=== PATIENT | male | born 1970 | race Hispanic/Latino ===

== ENCOUNTER → 2020-06-06 | Outpatient (CLI) | payer OTHER | END | disposition home or self-care (01) | LOC: SHCH 07:40 | PROVIDERS: ATTEND Internal Medicine | DX: I70.213 Atherosclerosis of native arteries of extremities with intermittent claudication, bilateral legs (principal) | CPT/HCPCS: 93922 ==

== ENCOUNTER 2025-01-05 05:39 | Day surgery (SDC) | payer OTHER ==
[2025-01-01 11:34] LABS: IMMATURE GRANULOCYTE ABSOLUTE 0.04 K/uL (0-1); NUCLEATED RED BLOOD CELLS 0.0 % (0.0-0.19); PLATELET COUNT (AUTO) 190 K/uL (130-400); RED BLOOD CELL COUNT(AUTO) 5.11 MIL/uL (4.50-6.20); RED CELL DISTRIBUTION WIDTH 13.5 % (11.0-15.5); WHITE BLOOD COUNT (AUTO) 7.3 K/uL (4.8-10.8)
[2025-01-01 11:38] LABS: APPEARANCE,URINE CLEAR (CLEAR); GLUCOSE, URINE (UA) NEGATIVE (NEGATIVE); LEUKOCYTE ESTERASE ,URINE NEGATIVE Leu/uL (NEGATIVE); NITRATE,URINE NEGATIVE (NEGATIVE); OCCULT BLOOD,URINE MODERATE (NEGATIVE)
[2025-01-01 11:41] LABS: CREATININE 0.9 mg/dL (0.5-1.3); GLOMERULAR FILTR. RATE CALC 101.0 mL/min (>90); GLUCOSE,RANDOM 116.0 mg/dL (70-105); SODIUM SERUM 139.0 mmol/L (136-145); UREA NITROGEN, BLOOD 14.0 mg/dL (7-18)
[2025-01-01 11:45] LABS: ADD UA MICROSCOPIC YES
[2025-01-01 11:50] VITALS: BP 134/77; PULSE 85; RESP 18; TEMP 98.6
[2025-01-01 11:57] LABS: INR 1.06 (0.85-1.15)
--- NOTE | 2025-01-01 12:24 | EKG ---
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
--- NOTE | 2025-01-01 17:02 | HMCIMG ---
EXAM: CR CHEST, 1 VIEW CLINICAL HISTORY: pre op COMPARISON: None provided TECHNIQUE: Single frontal radiograph of the chest was obtained. FINDINGS: Lines/Devices: None. Lungs: Radiographically clear. No consolidation or ground-glass opacities are observed. There is no pleural effusion. There is no pneumothorax. Mediastinum and cardiovascular structures: There are calcific atherosclerotic plaques in the aorta. The cardiac silhouette is not enlarged. The central airway and mediastinal contours are unremarkable. Bones and soft tissues: Unremarkable. IMPRESSION: * No acute cardiopulmonary process. /[place]
[~2025-01-05] VITALS: Ht 160 cm; Wt 64.0 kg
[2025-01-05] VITALS (9 sets, daily range): BP systolic 133–145; BP diastolic 70–90; PULSE 66–85; RESP 12–16; TEMP 97.4–98
[~2025-01-05 05:39] MED LIST: ASPI-1443 PO; METO-408 PO; PSYL0.4C2 PO; ROSU10TA98 PO
[2025-01-05] MEDS ORDERED: 0.9%NACL 1000ML 1,000 ML IV SCH ×2 (06:45→10:30)
[2025-01-05] MEDS ORDERED: LIDOCAINE HCL 400MG/20ML VIAL ONE (07:17)
[2025-01-05] MEDS ORDERED: IOHEXOL 350 MG/ML 100ML INFUS..BTL IV ONE ×2 (07:17→09:18)
[2025-01-05] MEDS ORDERED: NITROGLYCERIN 50MG VIAL ONE (07:18)
[2025-01-05] MEDS ORDERED: HEParin-NS 1,000 UNIT/500 ML 1,000 ML IV ONE (07:18)
[2025-01-05] MEDS ORDERED: MIDAZOLAM HCL 1 MG/ML 2ML VIAL ONE ×2 (07:20→08:49)
[2025-01-05] MEDS ORDERED: HEParin-NS 1,000 UNIT/500 ML 500 ML IV ONE (08:51)
[2025-01-05] MEDS ORDERED: ASPIRIN 325MG EC TAB PO ONE (10:05)
[2025-01-05] MEDS ORDERED: CLOP75TA32 PO (10:11)
--- NOTE | 2025-01-05 10:41 | PRN ---
PROCEDURE NOTE Indications: -Elevated CT calcium score (1907) done on 04/26/2020 -Abnormal Lexiscan stress test done on 09/27/2022 -LV systolic dysfunction with global hypokinesis of the LV (LVEF: 40-45% by echo done 12/10/2024) -HLP -Tobacco abuse Procedures: Coronary angiogram Introduction: After informed written consent was obtained, the patient was brought to the Catheterization Lab in the usual fasting state. Following sterile prep and drape, a time out was performed, then moderate sedation was administered, 1mg of Versed and 50mcg of Fentanyl, then 1% Lidocaine was infiltrated into the right wrist. Using a Modified Seldinger technique, a 6Fr Sheath was inserted into the right radial artery. While under fluoroscopic guidance, diagnostic coronary catheters were advanced over a wire into the central circulation where they were aspirated, flushed and placed to pressure monitoring, once the wire was removed. Coronary Angio: The left and right coronary arteries were engaged with appropriate catheters and angiography was performed under continuous pressure monitoring. Cardiac Findings: Right dominant system LM: Large caliber vessel with 20% stenosis in the distal LM. The vessel bifurcates into the LAD and LCX. LAD: Large caliber vessel with diffuse 70-80% stenosis in the proximal-mid LAD and 20% stenosis in the distal LAD. SHAUN 3 blood flow. DIAG1: Small caliber vessel with mild luminal irregularities. LCx: Medium caliber vessel with mild luminal irregularities. OM1: Medium caliber vessel with mild luminal irregularities. RCA: Large caliber vessel with diffuse 30-40% stenosis in the proximal and mid RCA. The rest of the vessel has luminal irregularities. RPDA: Medium caliber vessel with mild luminal irregularities. RPLV: Small caliber vessel with mild luminal irregularities. Medications given: 1 mg IV midazolam, 50 mcg IV fentanyl, radial cocktail, 9000 units IV heparin, 325 mg aspirin, 600 mg clopidogrel, nitroglycerin 600 mcg, nicardipine 200 mcg Coronary Intervention: Guide catheter: Q3.5 Guidewire: 0.014 run-through After reviewing the above-mentioned findings the decision was made to intervene on the LAD. The patient was administered an additional 4000 units of heparin IV. We then advanced the Q3.5 guide into the ostium of the left main. We then advanced the 0.014 run-through guidewire across the areas stenosis and into the distal LAD. We then advanced a guide liner into the proximal LAD. We then performed balloon angioplasty (2.0 x 15 > 3.0 x 15 mm), balloon lithotripsy (shockwave 3.5 x 12 mm > 4.0 x 12 mm) in the proximal to mid LAD. We then performed IVUS assessment to determine the lumen size. We then performed successful YELENA placement (Xience skypoint 3.5 x 28 mm) in the proximal to mid LAD. The stent was post dilated using a 4.0 x 8 mm balloon, achieving optimal results. The balloon and guide liner were then removed and repeat angiography was performed, which revealed a widely patent stent in the proximal to mid LAD, and SHAUN three blood flow distally. The 0.014 run-through guidewire and Q 3.5 guide catheter were then removed. Complications: None Conscious Sedation Monitoring: Under my direct order and supervision, medication for moderate conscious sedation was administered by the nursing staff and the patients level of consciousness and physiological status was monitored by an independent trained nurse. Closure of Access Site: After the case completed the sheath was pulled and a TR band was deployed over the right radial artery access site resulting in hemostasis. Conclusion: 1. 1V CAD (diffuse 70-80% stenosis n the proximal-mid LAD) s/p successful PCI with balloon angioplasty, balloon lithotripsy (Shockwave C2 Aero 3.5x12 mm and C2+ 4.0x12 mm), and YELENA placement (Xience Skypoint 3.5 x 28 mm) in the proximal-mid LAD. The stent was then post dilated with a noncompliant balloon (4.0x8 mm) achieving optimal results. 2. Residual nonobstructive CAD (20% stenosis in the distal LM, 20% stenosis in the distal LAD, diffuse 30-40% stenosis in the proximal-mid RCA) 3. Elevated CT calcium score (1907) done on 04/26/2020 4. Abnormal Lexiscan stress test done on 09/27/2022 5. LV systolic dysfunction with global hypokinesis of the LV (LVEF: 40-45% by echo done 12/10/2024) 6. HLP 7. Tobacco abuse Recommendation: 1. Continue goal directed medical therapy. 2. Start clopidogrel 75 mg daily and continue aspirin 81 mg daily. The patient will remain on DAPT for a minimum of 6 months, but optimally for 1 year post PCI. 3. Please start NS at 100 mL/hr x 3 hours. 4. Wrist precautions 5. Please enact TR band removal protocol. 6. No driving x 48 hours 7. No strenuous activity or heavy lifting x 2 weeks 8. Okay to discharge home once bedrest is complete and the patient's radial access site remains soft to palpation and free of significant bleeding ,bruising, or hematoma formation. 9. Please have the patient follow up with Cardiology, Dr. Yajaira Alford, 1-2 weeks after discharge. YAJAIRA ALFORD MD Jan 05, 2025 10:41
--- NOTE | 2025-01-05 13:02 | NUR ---
VASC Band removed per protocol. No evidence of bleeding, bruising or hematoma. Radial pulses intact to BUE's. Light pressure dressing applied with education on expectations at home and follow up. Patient and Family all voiced understanding.
--- NOTE | 2025-01-05 14:13 | NUR ---
PIV REMOVED AND PATIENT W/C TO POV WITH SISTER. RADIAL SITE REMAINS CLEAN, DRY AND INTACT.
== END 2025-01-05 14:00 | disposition home or self-care (01) ==
LOC: DAH 05:39
PROVIDERS: ATTEND Internal Medicine Cardiovascular Disease
DX: R94.39 Abnormal result of other cardiovascular function study (principal); I25.118 Atherosclerotic heart disease of native coronary artery with other forms of angina pectoris; I50.22 Chronic systolic (congestive) heart failure; E78.5 Hyperlipidemia, unspecified; I73.9 Peripheral vascular disease, unspecified; I45.2 Bifascicular block; R93.1 Abnormal findings on diagnostic imaging of heart and coronary circulation; I51.9 Heart disease, unspecified; R01.1 Cardiac murmur, unspecified; Z72.0 Tobacco use; Z79.82 Long term (current) use of aspirin; Z79.01 Long term (current) use of anticoagulants; Z83.3 Family history of diabetes mellitus; Z79.899 Other long term (current) drug therapy; Z98.890 Other specified postprocedural states
CPT/HCPCS: 80048; 83880; 85025; 85610; 85730; 81001; 36415 ×2; 71045; 93005; 99156; 99157 ×6; 92978; 92972; 93454; 85347 ×2; C9600; C1761; C1769 ×2; C1887 ×3; C1725 ×4; C1894; A4649; C1753; C1874; J3010 ×2; J3490 ×3; J1644 ×3; J2250 ×2; Q9967 ×2; A4215; A4222; A6260; A4221; A4663; A4216; A6258; A4606; Q9965 ×3; A4223 ×3; 92979; 96360; 96361